=== PATIENT | male | born 1985 | race Caucasian/White ===

== ENCOUNTER 2020-11-27 18:21 | Emergency (ER) | payer BC ==
[~2020-11-27] VITALS: Ht 182.9 cm; Wt 94.6 kg
--- NOTE | 2020-11-27 19:20 | PHYS DOC ---
Past History Past Surgical History: No Surgical History General Adult EDM: Chief Complaint: ANKLE PROBLEM HPI: HPI: Patient is a 35-year-old male who presents with left ankle pain. [place]. EMS gave 5 of Versed for pain. Obvious fracture. Pedal pulses intact. Patient denies any other injuries or pain at this time. Denies medical history. Review of Systems: Review of Systems: ROS At least 10 ROS systems have been reviewed and are negative except as documented in the HPI. General: Negative except as outlined in HPI above. Skin: Negative except as outlined in HPI above. HEENT: Negative except as outlined in HPI above. Neck: Negative except as outlined in HPI above. Respiratory: Negative except as outlined in HPI above.. Cardiovascular: Negative except as outlined in HPI above. Abdomen: Negative except as outlined in HPI above. : Negative except as outlined in HPI above. Back/MSK: Negative except as outlined in HPI above. Neuro: Negative except as outlined in HPI above. Psych: Negative except as outlined in HPI above. Allergies: Allergies: Allergies Coded Allergies Type Severity Reaction Last Updated Verified No Known Drug Allergies 11/27/20 No Physical Exam: PE: Constitutional: Well developed, well nourished, no acute distress, non-toxic appearance. [] HENT: Normocephalic, atraumatic, bilateral external ears normal, oropharynx moist, no oral exudates, nose normal. [] Eyes: PERRLA, EOMI, conjunctiva normal, no discharge. [] Neck: Normal range of motion, no tenderness, supple, no stridor. [] Cardiovascular:Heart rate regular rhythm, no murmur [] Lungs & Thorax: Bilateral breath sounds clear to auscultation [] Abdomen: Bowel sounds normal, soft, no tenderness, no masses, no pulsatile masses. [] Skin: Warm, dry, no erythema, no rash. [] Back: No tenderness, no CVA tenderness. [] Extremities: Left ankle tenderness, obvious deformity, pedal pulses intact Neurologic: Alert and oriented X 3, normal motor function, normal sensory function, no focal deficits noted. [] Psychologic: Affect normal, judgement normal, mood normal. [] Current Patient Data: Vital Signs: Vital Signs Date Time Temp Pulse Resp B/P (MAP) Pulse Ox O2 Delivery O2 Flow Rate FiO2 11/27/20 19:04 98.0 84 122/68 (86) 96 EKG: EKG: []EXAM: XR LT TIBIA + FIBULA, XR EXAM OF ANKLE_LEFT 3V, XR FOOT_LEFT 3 VIEWS 11/27/2020 7:20 PM CLINICAL INDICATION: Fall COMPARISON: None TECHNIQUE: 3 views of the left tibia and fibula, 3 views of the left ankle, 3 views of the left foot FINDINGS: Left ankle: There is an oblique fracture of the distal fibula with posterior and lateral angulation of the distal fragment. There is a small posterior malleolar fracture. No definite medial malleolar fracture identified. There is posterior dislocation/subluxation and lateral subluxation of the talus relative to the tibia and anterior widening of the tibiotalar joint. Complete disruption of the distal tibiofibular syndesmosis. Moderate soft tissue swelling. The talar dome is intact. Left foot: No acute fracture of the visualized portion of the left foot. Alignment is normal. No focal soft tissue swelling. Left tibia and fibula: Ankle fracture as above. No fracture of the remainder of the tibia and fibula. Alignment at the knee is normal. IMPRESSION: 1. Ankle fracture-dislocation/subluxation with lateral and posterior malleoli fractures. 2. No other fracture of the left tibia and fibula. 3. No acute fracture of the left foot. Electronically signed by: Tiffany Szymanski MD (11/27/2020 9:41 PM) [facility] Radiology/Procedures: Radiology/Procedures: Sinus rhythm. Heart rate 88 bpm. No STEMI. Read by Dr. Chinchilla. [] Heart Score: C/O Chest Pain: No Risk Factors: Risk Factors: DM, Current or recent (<one month) smoker, HTN, HLP, family history of CAD, obesity. Risk Scores: Score 0 - 3: 2.5% MACE over next 6 weeks - Discharge Home Score 4 - 6: 20.3% MACE over next 6 weeks - Admit for Clinical Observation Score 7 - 10: 72.7% MACE over next 6 weeks - Early Invasive Strategies Course & Med Decision Making: Course & Med Decision Making Pertinent Labs and Imaging studies reviewed. (See chart for details) [] 35-year-old male presents with left ankle pain after rolling his ankle at the [facility]. Patient was given 5 of Versed for pain. Obvious deformity to left ankle. Pedal pulses are intact. Denying needing anything for pain at this time. Tib-fib, left ankle x-ray ordered to verify fracture. Radiology report shows a displaced, tubular fracture. Discussed results with patient. Patient is reporting pain at this time. Patient was offered pain m edication, patient refused due to fear of addiction. Patient was concerned about pain during splinting. Patient given 2.5 mg of Versed while splint was placed. Patient was placed in a posterior, stirrup splint. Patient tolerated procedure. Repeat ankle x-ray pleated to verify correct placement. Splint was placed appropriately. Patient is neurovascularly intact. Advised patient he needs to call orthopedics tomorrow to make a follow-up appointment. Patient was provided with crutches. Discussed return precautions with patient. Patient verbalized importance of follow-up with Ortho. Patient informed her and he would take hydrocodone at home for pain. Advised patient to also take Motrin for breakthrough. Rice instructions given. Patient is a alert and oriented, and hemodynamically stable upon disposition. Raysa Disclaimer: Raysa Disclaimer: This electronic medical record was generated, in whole or in part, using a voice recognition dictation system. Departure Departure: Impression: Primary Impression: Ankle fracture, left Qualified Codes: S82.892A - Other fracture of left lower leg, initial encounter for closed fracture Disposition: 01 HOME / SELF CARE / HOMELESS Condition: STABLE Referrals: PCP,NO (PCP) Patient Instructions: Tibial and Fibular Fracture, Adult Additional Instructions: You were seen in emergency room for left ankle fracture. Splint was placed on your left ankle. You are also given crutches. I am sending you home with prescription for hydrocodone for pain. You can also use Motrin for breakthrough pain. It is very important that you call Ortho tomorrow and make a follow-up appointment. Rest, use ice, elevate. Please return to the emergency room if you have worsening symptoms or concerns. Lalito Varela [phone] EMERGENCY DEPARTMENT GENERAL DISCHARGE INSTRUCTIONS Thank you for coming to [facility] (ED) today and trusting us with you care. We trust that you had a positivie experience in our Emergency Department. If you wish to speak to the department management, you may call the director at [phone]. YOUR FOLLOW UP INSTRUCTIONS ARE FOLLOWS: 1. Do you have a private Doctor? If you do not have a private doctor, please ask for a resource list of physicians or clinics that may be able to assist you with follow up care. 2. The Emergency Physician has interpreted your x-rays. The X-Ray specialist will also review them. If there is a change in the findings, you will be notified in 48 hours when at all possible. 3. A lab test or culture has been done, your results will be reviewed and you will be notified if you need a change in treatment. ADDITIONAL INSTRUCTIONS AND INFORMATION: 1. Your care today has been supervised by a physician who is specially trained in emergency care. Many problems require more than one evaluation for a complete diagnosis and treatment. We recommend that you schedule your follow up appointment as recommended to ensure complete treatment of you illness or injury. If you are unable to obtain follow up care and continue to have a problem, or if your condition worsens, we recommend that you return to the ED. 2. We are not able to safely determine your condition over the phone nor are we able to give sound medical advice over the phone. For these safety reasons, if you call for medical advice we will ask you to come to the ED for further evaluation. 3. If you have any questions regarding these discharge instructions please call the ED at [phone]. SAFETY INFORMATION: In the interest of safety, wellness, and injury prevention; we encourage you to wear your sealbelt, if you smoke; quite smoking, and we encourage family to use a protec tive helmet for bicycling and other sporting events that present an increased risk for head injury. IF YOUR SYMPTOMS WORSEN OR NEW SYMPTOMS DEVELOP, OR YOU HAVE CONCERNS ABOUT YOUR CONDITION; OR IF YOUR CONDITION WORSENS WHILE YOU ARE WAITING FOR YOUR FOLLOW UP APPOINTMENT; EITHER CONTACT YOUR PRIMARY CARE DOCTOR, THE PHYSICIAN WHOSE NAME AND NUMBER YOU WERE GIVEN, OR RETURN TO THE ED IMMEDIATELY. Scripts Hydrocodone Bit/Acetaminophen (HYDROCODONE-APAP 5-325 ) 1 Each Tablet 1-2 TAB PO PRN Q6HRS PRN for PAIN for 3 Days, #12 TAB 0 Refills Prov: JAYDEN ELAM APRN 11/27/20 JAYDEN ELAM APRN Nov 27, 2020 19:20
[2020-11-27] MEDS ORDERED: IBUPROFEN 600 MG TABLET. PO ONE (20:15)
[2020-11-27] MEDS ORDERED: KETOROLAC 15 MG/ML VIAL. IVP ONE (20:45)
[2020-11-27] MEDS ORDERED: MIDAZOLAM HCL PF 5 MG/5 ML VIAL. IV ONE (21:30)
--- NOTE | 2020-11-27 21:44 | RAD ---
EXAM: XR LT TIBIA + FIBULA, XR EXAM OF ANKLE_LEFT 3V, XR FOOT_LEFT 3 VIEWS 11/27/2020 7:20 PM CLINICAL INDICATION: Fall COMPARISON: None TECHNIQUE: 3 views of the left tibia and fibula, 3 views of the left ankle, 3 views of the left foot FINDINGS: Left ankle: There is an oblique fracture of the distal fibula with posterior and lateral angulation o f the distal fragment. There is a small posterior malleolar fracture. No definite medial malleolar fr acture identified. There is posterior dislocation/subluxation and lateral subluxation of the talus re lative to the tibia and anterior widening of the tibiotalar joint. Complete disruption of the distal tibiofibular syndesmosis. Moderate soft tissue swelling. The talar dome is intact. Left foot: No acute fracture of the visualized portion of the left foot. Alignment is normal. No foca l soft tissue swelling. Left tibia and fibula: Ankle fracture as above. No fracture of the remainder of the tibia and fibula. Alignment at the knee is normal. IMPRESSION: 1. Ankle fracture-dislocation/subluxation with lateral and posterior malleoli fractures. 2. No other fracture of the left tibia and fibula. 3. No acute fracture of the left foot. Electronically signed by: Tiffany Szymasnki MD (11/27/2020 9:41 PM) ANDREEJASMYN
[2020-11-27] MEDS ORDERED: HYDR-2155 PO (22:01)
[2020-11-27 22:53] VITALS: BP 138/70
--- NOTE | 2020-11-27 23:45 | RAD ---
Three-view left ankle dated 11/27/2020. COMPARISON: Study dated same day. CLINICAL INDICATION: Post reduction of fracture. FINDINGS: 3 views of left ankle show interval reduction of posterior tibiotalar dislocation. There is also been improved alignment of distal fibular oblique fracture. Slight cortical irregularity of the posterior malleolus could represent a small nondisplaced fracture. Diffuse soft tissue swelling with interval placement of splint or cast. IMPRESSION: 1. Interval reduction of left ankle fracture dislocation. Electronically signed by: Chacho Shen MD (11/27/2020 11:42 PM) LILA
== END 2020-11-27 22:54 | disposition home or self-care (01) ==
LOC: ER 18:21
DX: S82.892A Other fracture of left lower leg, initial encounter for closed fracture (principal); X50.9XXA Other and unspecified overexertion or strenuous movements or postures, initial encounter; Y93.89 Activity, other specified; Y92.89 Other specified places as the place of occurrence of the external cause; Y99.8 Other external cause status
CPT/HCPCS: 29515; 73590; 73610; 73630; 96374; 99284; J1885; J2250